=== PATIENT | female | born 1965 ===

== ENCOUNTER 2017-10-01 16:49 | Emergency (ER) | payer OTHER ==
[2017-10-01 16:49] VITALS: BMI 27.5
[2017-10-01 17:01] VITALS: RESP 20; O2SAT 97
--- NOTE | 2017-10-01 17:57 | C.PDOC ---
History Of Present Illness 52 year old female patient presents to the ER with complaints of persistent dry cough for 2 days. Patient notes she feels like there is "dust in her throat" which is causing the cough. Patient states she has had similar episodes 3 years ago and was prescribed Tussionex, which caused relief. Patient is requesting medication to be given again. Patient denies CP, difficulty in breathing, pain with swallowing, throat swelling, rash, and fever. Time Seen by Provider: 10/01/17 17:36 Chief Complaint (Nursing): ENT Problem History Per: Patient History/Exam Limitations: None Onset/Duration Of Symptoms: Days (x2) Current Symptoms Are (Timing): Still Present Past Medical History Reviewed: Historical Data, Nursing Documentation, Vital Signs Vital Signs: Last Vital Signs Temp 98.8 F 10/01/17 18:38 Pulse 78 10/01/17 18:38 Resp 20 10/01/17 18:38 BP 160/90 H 10/01/17 18:38 Pulse Ox 97 10/01/17 20:12 - Medical History PMH: Hypercholesterolemia, Hyperthyroidism Surgical History: Appendectomy Family History: States: Unknown Family Hx - Social History Hx Tobacco Use: No Hx Alcohol Use: No Hx Substance Use: No - Immunization History Hx Tetanus Toxoid Vaccination: No Hx Influenza Vaccination: Yes (2014) Hx Pneumococcal Vaccination: No Review Of Systems Except As Marked, All Systems Reviewed And Found Negative. Constitutional: Negative for: Fever ENT: Negative for: Throat Swelling, Other (difficulty in swallowing) Cardiovascular: Negative for: Chest Pain Respiratory: Positive for: Cough (persistent). Negative for: Other (difficulty in breathing) Physical Exam - Physical Exam Appears: Well, Non-toxic, No Acute Distress Skin: Normal Color, Warm, Dry Head: Atraumatic, Normacephalic Eye(s): bilateral: Normal Inspection, EOMI Ear(s): Bilateral: Normal Nose: Normal Oral Mucosa: Moist Throat: Normal, Other (persistent dry cough) Neck: Normal ROM, Supple Chest: Symmetrical, No Deformity Cardiovascular: Rhythm Regular Respiratory: Normal Breath Sounds, No Accessory Muscle Use, Other (dry cough noted) Extremity: Normal ROM (x4) Neurological/Psych: Oriented x3, Normal Speech Gait: Steady ED Course And Treatment O2 Sat by Pulse Oximetry: 97 Progress Note: Previous records evaluated, similar episode in 12/2014. Pt was instructed allergic and symptomatic treatment. Patient is advise to f/u with PCP in 1-2 days. Mission Planner used to ensure understanding. Disposition - Disposition Disposition: HOME/ ROUTINE Disposition Time: 18:28 Condition: STABLE Additional Instructions: Vaya a head mdico o la clnica en 2-5 bob sin falta, para mas evaluacin. Perrin los medicamentos leonor indicado. Volver a la jhoana de emergencia en cualquier momento si los sntomas persisten o empeoran. Prescriptions: Albuterol HFA [Ventolin HFA 90 mcg/actuation (8 g)] 2 puff IH [id number] PRN #1 puff PRN Reason: Shortness Of Breath Hydrocodone/Chlorpheniramine [Tussionex] 5 ml PO QPM #25 ml Loratadine [Claritin] 10 mg PO DAILY #10 tab Instructions: Cough, Adult (DC) Forms: [employer] (Syriac) Print Language: FIJIAN - Clinical Impression Clinical Impression: Cough, Reactive airway disease - PA / AMORTIZATION CLERK / Resident Statement MD/ has reviewed & agrees with the documentation as recorded. - Scribe Statement The provider has reviewed the documentation as recorded by the Saad Henao Do All medical record entries made by the Scribe were at my direction and personally dictated by me. I have reviewed the chart and agree that the record accurately reflects my personal performance of the history, physical exam, medical decision making, and the department course for this patient. I have also personally directed, reviewed, and agree with the discharge instructions and disposition.
[2017-10-01 18:39] VITALS: BP 160/90; PULSE 78; TEMP 98.8
== END 2017-10-01 18:43 | disposition home or self-care (01) ==
LOC: C.ER 16:49
DX: J45.909 Unspecified asthma, uncomplicated (principal); R05 Cough

== ENCOUNTER 2018-05-10 14:13 | Emergency (ER) | payer SELFPAY ==
[2018-05-10 14:13] VITALS: BMI 27.5
[2018-05-10 14:27] VITALS: BP 152/82; PULSE 95; RESP 18; TEMP 97.9; O2SAT 99
--- NOTE | 2018-05-10 15:48 | C.PDOC ---
History Of Present Illness 52 year old female presents to the ED for evaluation of head injury and back/neck pain after she sustained a fall prior to arrival. Patient states she was standing on ice when she accidentally slipped, fell backwards and hit her head on the floor. Patient is complaining of a bump to the back of her head. She states she initially felt dizzy and laid on the floor for a bit, but was eventually able to get herself up. Patient also complains of bruising to her left arm. She denies dizziness currently and denies loss of consciousness, vision change, nausea, vomiting, urinary/bowel incontinence, extremity numbness/weakness. 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 ) History/Exam Limitations: language barrier Onset/Duration Of Symptoms: Hrs Injury Occurred (Timing): Just Before Arrival Location Of Injury: Left: Arm, Posterior: Back, Head, Neck Associated Symptoms: Dizziness Additional History Per: Patient - Fall Fall:Prior To Injury: Slipped Past Medical History Reviewed: Historical Data, Nursing Documentation, Vital Signs Vital Signs: Last Vital Signs Temp 97.9 F 05/10/18 14:24 Pulse 95 H 05/10/18 14:24 Resp 18 05/10/18 14:24 BP 152/82 H 05/10/18 14:24 Pulse Ox 99 05/10/18 14:24 - Medical History PMH: Hypercholesterolemia, Hyperthyroidism Surgical History: Appendectomy Family History: States: Unknown Family Hx - Social History Hx Tobacco Use: No Hx Alcohol Use: No Hx Substance Use: No - Immunization History Hx Tetanus Toxoid Vaccination: No Hx Influenza Vaccination: Yes (2014) Hx Pneumococcal Vaccination: No Review Of Systems Eyes: Negative for: Vision Change Gastrointestinal: Negative for: Nausea, Vomiting Genitourinary: Negative for: Incontinence Skin: Positive for: Other (injury to back of head after fall ) Neurological: Positive for: Dizziness. Negative for: Weakness, Numbness, Other (loss of consciousness ) Physical Exam - Physical Exam Appears: Non-toxic, No Acute Distress Skin: Normal Color, Warm, Dry, Ecchymosis (to posterior aspect of left arm ) Head: Other (hematoma to occipital scalp. no active bleeding ) Eye(s): bilateral: Normal Inspection, PERRL, EOMI Oral Mucosa: Moist Throat: Normal, No Erythema, No Exudate Neck: Normal ROM, Supple Chest: Symmetrical, No Deformity, No Tenderness Cardiovascular: Rhythm Regular, No Murmur Respiratory: Normal Breath Sounds, No Rales, No Rhonchi, No Wheezing Extremity: Normal ROM (bilateral upper and lower extremities ), Capillary Refill (less than 2 seconds ), No Deformity Neurological/Psych: Oriented x3, Normal Speech, Normal Cognition, Normal Motor, Normal Sensation, Other (no pronator drift ) Gait: Steady ED Course And Treatment O2 Sat by Pulse Oximetry: 99 (on RA) Pulse Ox Interpretation: Normal Medical Decision Making Medical Decision Making: On reassessment, patient is resting comfortably, has a normal neurological exam, and is showing no signs of distress. Patient is ambulatory in the ED with a steady gait and is stable for discharge. She is advised to apply ice to the area and take pain medication. Patient advised to follow up with her PMD within 1-2 days for further evaluation. Advised to return to the ED immediately if symptoms persist or worsen. Disposition Counseled Patient/Family Regarding: Diagnosis, Need For Followup - Disposition Referrals: [facility] [Outside] [facility] [Outside] Disposition: HOME/ ROUTINE Disposition Time: 15:46 Condition: GOOD Prescriptions: Naproxen [Naprosyn] 500 mg PO BID PRN #30 tablet PRN Reason: Pain, Moderate (4-7) Instructions: Closed Head Injury (DC), Concussion (ED) Forms: Gen Discharge Inst Hungarian, Muse (Hungarian) Print Language: TRINIDADIAN - POA Present On Arrival: None - Clinical Impression Clinical Impression: Head injury, acute, without loss of consciousness, Contusion, Hematoma of scalp - Scribe Statement The provider has reviewed the documentation as recorded by the Scribe (Shannan Bryant) Provider Attestation: All medical record entries made by the Scribe were at my direction and personally dictated by me. I have reviewed the chart and agree that the record accurately reflects my personal performance of the history, physical exam, medical decision making, and the department course for this patient. I have also personally directed, reviewed, and agree with the discharge instructions and disposition.
== END 2018-05-10 16:00 | disposition home or self-care (01) ==
LOC: C.ER 14:13
DX: S00.03XA Contusion of scalp, initial encounter (principal); W01.0XXA Fall on same level from slipping, tripping and stumbling without subsequent striking against object, initial encounter; E78.00 Pure hypercholesterolemia, unspecified; E05.90 Thyrotoxicosis, unspecified without thyrotoxic crisis or storm

== ENCOUNTER 2018-06-21 13:24 | Emergency (ER) | payer OTHER, SELFPAY ==
[2018-06-21 13:24] VITALS: BMI 27.5
[2018-06-21 13:31] VITALS: RESP 20
--- NOTE | 2018-06-21 14:43 | C.PDOC ---
History Of Present Illness 52 y/o female presents to the ED for evaluation of occipital headache. She reports taking hot showers and massage, and notes the symptoms worsened for the last 3 days. Patient denies taking any medication for headache relief. She also denies any fevers, neck stiffness, visual changes, dizziness, nausea, vomiting, or chest pain. Time Seen by Provider: 06/21/18 13:41 Chief Complaint (Nursing): Headache History Per: Patient History/Exam Limitations: no limitations Onset/Duration Of Symptoms: Worse Since (2 days ago) Current Symptoms Are (Timing): Still Present Past Medical History Reviewed: Historical Data, Nursing Documentation, Vital Signs Vital Signs: Last Vital Signs Temp 98.3 F 06/21/18 13:28 Pulse 90 06/21/18 13:28 Resp 20 06/21/18 13:28 BP 172/89 H 06/21/18 13:28 Pulse Ox 98 06/21/18 13:28 - Medical History PMH: Hypercholesterolemia, Hyperthyroidism Surgical History: Appendectomy Family History: States: Unknown Family Hx - Social History Hx Tobacco Use: No Hx Alcohol Use: No Hx Substance Use: No - Immunization History Hx Tetanus Toxoid Vaccination: No Hx Influenza Vaccination: Yes (2014) Hx Pneumococcal Vaccination: No Review Of Systems Constitutional: Negative for: Fever, Chills Eyes: Negative for: Vision Change Cardiovascular: Negative for: Chest Pain, Palpitations Respiratory: Negative for: Shortness of Breath Gastrointestinal: Negative for: Nausea, Vomiting Musculoskeletal: Negative for: Neck Pain Skin: Negative for: Rash Neurological: Positive for: Headache. Negative for: Weakness, Numbness, Dizziness Physical Exam - Physical Exam Appears: Non-toxic, No Acute Distress Skin: Normal Color, Warm, Dry Head: Atraumatic, Normacephalic Eye(s): bilateral: Normal Inspection, PERRL, EOMI Oral Mucosa: Moist Neck: Normal ROM, No Midline Cervical Tenderness, No Paracervical Tenderness, Other Chest: Symmetrical Cardiovascular: Rhythm Regular, No Murmur Respiratory: Normal Breath Sounds, No Accessory Muscle Use Gastrointestinal/Abdominal: Soft, No Tenderness, No Distention Back: No Vertebral Tenderness, Muscle Spasm (Tension and tenderness to the entire bilateral trapezius muscles) Extremity: Bilateral: Atraumatic, Normal Color And Temperature Neurological/Psych: Oriented x3, Normal Speech, Normal Cranial Nerves Gait: Steady ED Course And Treatment O2 Sat by Pulse Oximetry: 98 (RA) Pulse Ox Interpretation: Normal Medical Decision Making Medical Decision Making: muscle tension headache relieved with NSAIDS/ice therapy Disposition Doctor Will See Patient In The: Office Counseled Patient/Family Regarding: Studies Performed, Diagnosis - Disposition Referrals: [facility] [Outside] [facility] [Outside] [facility] [Outside] [facility] [Outside] Disposition: HOME/ ROUTINE Disposition Time: 14:43 Condition: GOOD Additional Instructions: [place] 1/2 hora por hora, nada caliente NO renee francisca caliente por 2 malloy Ibuprofeno/Advil 400-600 mg cada 6 horas leonor necessario Sigue con [facility] leonor necessario Instructions: Muscle Strain (DC), Tension Headache (DC) Forms: [facility] (Maltese) Print Language: KHMER - Clinical Impression Clinical Impression: Headache, Trapezius strain - Scribe Statement The provider has reviewed the documentation as recorded by the Saad Pearson Provider Attestation: All medical record entries made by the Saad were at my direction and personally dictated by me. I have reviewed the chart and agree that the record accurately reflects my personal performance of the history, physical exam, medical decision making, and the department course for this patient. I have also personally directed, reviewed, and agree with the discharge instructions and disposition.
[2018-06-21 14:50] VITALS: BP 150/62; PULSE 59; TEMP 98
[2018-06-21 15:17] VITALS: O2SAT 98
== END 2018-06-21 14:50 | disposition home or self-care (01) ==
LOC: C.ER 13:24
DX: R51 Headache (principal); S29.012A Strain of muscle and tendon of back wall of thorax, initial encounter; X58.XXXA Exposure to other specified factors, initial encounter